=== PATIENT | female | born 1945 | race Caucasian/White ===

== ENCOUNTER 2018-08-20 09:38 | Emergency (ER) | payer OTHER, MEDICAID ==
[~2018-08-20] VITALS: Ht 165.1 cm; Wt 75.3 kg
[2018-08-20] MEDS ORDERED: LASIX 40 MG TAB40 M2 PO (09:47)
[2018-08-20] MEDS ORDERED: POTASSIUM20 PO (09:47)
[2018-08-20] MEDS ORDERED: ASPIR 8181 MG PO (09:47)
[2018-08-20 10:25] LABS: HEMATOCRIT 39.4 % (37.0-47.0); HEMOGLOBIN 13.4 gm/dL (12.0-15.0); MCH 32.3 pg (26.0-34.0); MCHC 34.1 g/dL (28.0-37.0); MCV 94.6 fL (80.0-100.0); MPV 9.3 fl. (7.2-11.1); NUCLEATED RBCS 0 /100WBC; PLATELET COUNT* 170 thou/uL (150-400); RBC 4.16 mil/uL (4.20-5.00); RDW-CV 12.7 % (10.5-14.5)
[2018-08-20 10:39] LABS: APTT 32.4 Seconds (25.0-31.3); INR 1.2; PROTIME 12.3 Seconds (9.20-11.50)
[2018-08-20 10:51] LABS: ABSOLUTE MONOCYTES 0.3 thou/uL (0.0-1.2); ABSOLUTE NEUTROPHILS 4.8 thou/uL (1.6-8.1); ATYPICAL LYMPHS 4 %; PLATELET ESTIMATE ADEQUATE
[2018-08-20 11:03] LABS: ALBUMIN 3.1 g/dL (3.4-5.0); ALKALINE PHOSPHATASE 58 U/L (46-116); ANION GAP 8 mmol/L (7-16); BUN 17 mg/dL (7-18); CALCIUM 8.9 mg/dL (8.5-10.1); CHLORIDE 107 mmol/L (98-107); CO2 28 mmol/L (21-32); CREATININE 0.7 mg/dL (0.6-1.3); GLUCOSE 88 mg/dL (70-99); LIPASE 94 U/L (73-393); POTASSIUM 3.6 mmol/L (3.5-5.1); SGOT 15 U/L (15-37); SGPT 18 U/L (30-65); SODIUM 143 mmol/L (136-145); TOTAL BILIRUBIN 0.4 mg/dL (<0.1-1.0); TOTAL PROTEIN 6.7 g/dL (6.4-8.2); TROPONIN-I LEVEL <0.06 ng/mL (<0.06)
[2018-08-20 11:12] LABS: URINE BILIRUBIN NEGATIVE (Negative); URINE BLOOD TRACE (Negative); URINE CLARITY CLEAR; URINE COLOR YELLOW; URINE GLUCOSE-RANDOM NEGATIVE (Negative); URINE KETONES NEGATIVE (Negative); URINE LEUKOCYTES-REFLEX NEGATIVE (Negative); URINE NITRITE-REFLEX NEGATIVE (Negative); URINE PROTEIN NEGATIVE (Negative); URINE SPECIFIC GRAVITY 1.025 (1.005-1.030)
[2018-08-20] MEDS ORDERED: HYDROCODONE-AP1 EAC6 PO (11:47)
[2018-08-20 12:14] VITALS: BP 124/44
--- NOTE | 2018-08-20 16:23 | EKG ---
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
== END 2018-08-20 12:15 | disposition home or self-care (01) ==
LOC: M.ERS 09:38
PROVIDERS: Emergency Medicine Emergency Medical Services
DX: R10.32 Left lower quadrant pain (principal); M54.5 Low back pain; I50.9 Heart failure, unspecified; Z91.041 Radiographic dye allergy status; Z90.49 Acquired absence of other specified parts of digestive tract; Z98.890 Other specified postprocedural states

== ENCOUNTER 2019-02-12 07:16 | Emergency (ER) | payer OTHER, MEDICAID ==
[~2019-02-12] VITALS: Ht 160 cm; Wt 71.7 kg
[~2019-02-12 07:16] MED LIST: ASPIR 8181 MG PO; HYDROCODONE-AP1 EAC6 PO; LASIX 40 MG TAB40 M2 PO; POTASSIUM20 PO
[2019-02-12] MEDS ORDERED: MEDROLDOSEPACK PO (07:46)
[2019-02-12] MEDS ORDERED: KEFLEX500 M1 PO (07:46)
[2019-02-12 07:53] VITALS: BP 153/74
== END 2019-02-12 07:54 | disposition home or self-care (01) ==
LOC: M.ERS 07:16
DX: M26.602 Left temporomandibular joint disorder, unspecified (principal); J02.9 Acute pharyngitis, unspecified; I50.9 Heart failure, unspecified; J44.9 Chronic obstructive pulmonary disease, unspecified; Z90.49 Acquired absence of other specified parts of digestive tract; Z98.890 Other specified postprocedural states; Z91.041 Radiographic dye allergy status

== ENCOUNTER 2019-08-30 08:37 | Emergency (ER) | payer OTHER, MEDICAID ==
[~2019-08-30] VITALS: Ht 160 cm; Wt 72.6 kg
[~2019-08-30 08:37] MED LIST changes: +KEFLEX500 M1 PO; +MEDROLDOSEPACK PO
[2019-08-30] MEDS ORDERED: VITAMIN D400 UNIT PO (08:48)
[2019-08-30 09:07] LABS: INFLUENZA A ANTIGEN Negative (Negative); INFLUENZA B ANTIGEN Negative (Negative)
[2019-08-30] MEDS ORDERED: PREDNISONE 20 M20 M1 PO (09:23)
[2019-08-30] MEDS ORDERED: ZPAK PO (09:23)
[2019-08-30 09:40] VITALS: BP 129/70
== END 2019-08-30 09:41 | disposition home or self-care (01) ==
LOC: M.ERS 08:37
PROVIDERS: Family Medicine
DX: J40 Bronchitis, not specified as acute or chronic (principal); I50.9 Heart failure, unspecified; J44.9 Chronic obstructive pulmonary disease, unspecified; Z90.49 Acquired absence of other specified parts of digestive tract; Z90.89 Acquired absence of other organs; Z91.041 Radiographic dye allergy status

== ENCOUNTER 2020-11-12 11:26 | Emergency (ER) | payer OTHER, MEDICAID ==
[~2020-11-12] VITALS: Ht 165.1 cm; Wt 80.3 kg
[~2020-11-12 11:26] MED LIST changes: +PREDNISONE 20 M20 M1 PO; +VITAMIN D400 UNIT PO; +ZPAK PO
[2020-11-12 11:55] LABS: ABSOLUTE BASOPHILS 0.1 thou/uL (0.0-0.2); ABSOLUTE EOSINOPHILS 0.1 thou/uL (0.0-0.7); ABSOLUTE LYMPHOCYTES 1.8 thou/uL (0.8-5.3); ABSOLUTE MONOCYTES 0.5 thou/uL (0.0-1.2); ABSOLUTE NEUTROPHILS 4.8 thou/uL (1.6-8.1); BASOPHILS 0.8 %; EOSINOPHILS 0.9 %; HEMATOCRIT 39.2 % (37.0-47.0); HEMOGLOBIN 13.3 gm/dL (12.0-15.0); LYMPHOCYTES 25.4 %; MCH 31.6 pg (26.0-34.0); MCV 93.1 fL (80.0-100.0); MONOCYTES 6.3 %; MPV 8.1 fl. (7.2-11.1); NUCLEATED RBCS 0 /100WBC; PLATELET COUNT* 190 thou/uL (150-400); POLYS 66.6 %; RBC 4.21 mil/uL (4.20-5.00); RDW-CV 12.6 % (10.5-14.5); WBC 7.1 thou/uL (4.0-11.0)
[2020-11-12 12:02] LABS: CALCIUM 9.2 mg/dL (8.5-10.1); CREATININE 0.9 mg/dL (0.6-1.3); POTASSIUM 3.4 mmol/L (3.5-5.1)
[2020-11-12 12:06] LABS: ALBUMIN 3.4 g/dL (3.4-5.0); APTT 24.8 Seconds (25.0-31.3); PROTIME 10.3 Seconds (9.20-11.50); TOTAL BILIRUBIN 0.3 mg/dL (<0.1-1.0); TOTAL PROTEIN 7.2 g/dL (6.4-8.2)
[2020-11-12] MEDS ORDERED: FLEXERIL PO (13:26)
[2020-11-12] MEDS ORDERED: MEDROLDOSEPACK PO (13:26)
[2020-11-12] MEDS ORDERED: NORCO5 PO (14:03)
[2020-11-12 14:11] LABS: URINE BILIRUBIN NEGATIVE (Negative); URINE BLOOD NEGATIVE (Negative); URINE CLARITY CLEAR; URINE COLOR YELLOW; URINE GLUCOSE-RANDOM NEGATIVE (Negative); URINE KETONES NEGATIVE (Negative); URINE LEUKOCYTES-REFLEX NEGATIVE (Negative); URINE NITRITE-REFLEX NEGATIVE (Negative); URINE PROTEIN NEGATIVE (Negative); URINE UROBILINOGEN 0.2 E.U./dl (0.2-1.0)
[2020-11-12 14:31] VITALS: BP 146/44
--- NOTE | 2020-11-12 16:58 | EKG ---
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 : 1945 Requested By: Evangelina Sandoval Order Number: [id number] MD: Christian Najera Measurements Intervals [place] Rate: 83 P: 52 [place]: 149 QRS: 22 QRSD: 107 T: 33 QT: 389 QTc: 457 Interpretive Statements Sinus rhythm Compared to ECG 08/20/2018 10:19:19 No significant changes Electronically Signed On 11-12-2020 16:58:27 DIALYSIS BIOMED TECHNICIAN by Christian Najera [email or web address] <ELECTRONICALLY SIGNED> By: Christian Najera MD, [facility] 11/12/20 1658 1138 113 Christian Najera MD, [facility] /EPI
== END 2020-11-12 14:32 | disposition home or self-care (01) ==
LOC: M.ERS 11:26
PROVIDERS: Physician Assistant
DX: R20.0 Anesthesia of skin (principal); M54.2 Cervicalgia; R07.89 Other chest pain; I50.9 Heart failure, unspecified; J44.9 Chronic obstructive pulmonary disease, unspecified; Z90.89 Acquired absence of other organs; Z90.49 Acquired absence of other specified parts of digestive tract; Z79.82 Long term (current) use of aspirin; Z79.899 Other long term (current) drug therapy; Z91.041 Radiographic dye allergy status; X50.1XXA Overexertion from prolonged static or awkward postures, initial encounter; Y93.84 Activity, sleeping; Y92.89 Other specified places as the place of occurrence of the external cause; Y99.8 Other external cause status

== ENCOUNTER 2021-03-29 08:15 | Inpatient (IN) | payer OTHER, MEDICAID ==
[~2021-03-29] VITALS: Ht 165.1 cm; Wt 86.9 kg
--- NOTE | ~2021-03-29 | CON ---
[address] [address] CONSULTATION Name: PATELHORACE Perri Room: [place] [address] ADM IN M.R.#: [id number] Admission: 03/29/21 Attend Phys: Hari Bey Discharge: Date of : 47 Report #: [id number] THIS REPORT FOR: cc: Jakob Rodriguez MD, Jonathan MD Khosla,Romel Marroquin MD ~ DATE OF CONSULTATION: 03/29/2021 HISTORY OF PRESENT ILLNESS: A 76-year-old female patient who was evaluated by me for left-sided weakness. She is complaining of neck pain, which is in the middle of the neck. It does radiate down towards the left upper extremity. It is going on for 3-4 days. She says she is able to do everything by herself. There is some history she has given earlier. She was wobbly. Nothing makes it better or worse. REVIEW OF SYSTEMS: A 14-point review of system was carried out. She has a history of congestive heart failure. She has a history of tonsillectomy, appendectomy. She says that she does not have any history of anxiety, depression, diabetes, hypertension. She denies any eye, ENT, cardiac, respiratory, , musculoskeletal, constitutional, dermatological, hematological, psychiatric, throat, allergic symptom associated with present symptomatology. PAST MEDICAL HISTORY: Positive for congestive heart failure. FAMILY HISTORY: Negative for early age stroke. SOCIAL HISTORY: She does not drink alcohol or smoke. PHYSICAL EXAMINATION: NEUROLOGIC: The patient's examination indicates she is alert. She is responsive. She is able to follow simple commands. Her speech looks intact. She believes her memory and fund of knowledge is at her baseline. Cranial nerve examination 2-12 looks unremarkable. She is weak in the left upper extremity and left lower extremity. She does position sense on both sides, but somewhat slowly on the left side. She says her sensation is about the same on both sides. I do not see any of the plantars except mute. Tone looks symmetrical. She does not appear to be ataxic. I could not look at the patient's fundus. There is no meningeal sign. Her hearing and vision looks adequate. There is no edema, cyanosis or jaundice. There is no thyroid mass. There is no carotid bruit. She does not appear to have any respiratory difficulty. VITAL SIGNS: Blood pressure is 148/67, respirations 20, pulse is 79, temperature is 98.3. LABORATORY DATA: Indicate a white count of 10.4. Potassium is slightly low at 3.4. [place] [address] CONSULTATION Name: JORGEHORACE S Room: [address] IN ..#: [id number] Admission: 03/29/21 Attend Phys: Hari Bey Discharge: Date of : 47 Report #: [id number] IMPRESSION AND PLAN: This patient is complaining of left and symptoms on the left side. I think we need to consider the possibility of a stroke as well as spine lesion. If it is a stroke, then we need to consider the possibility of dissection because of the neck pain. I think the initial test will be CT of the head and cervical spine, which I ordered stat. Rest of the workup will depend upon the outcome of those tests. She may need some further workup in that regard. Thank you very much for this referral. By: 1112 [id number] Silva MD /nt
[~2021-03-29 08:15] MED LIST changes: -ASPIR 8181 MG PO; +BAYER CHEWABLE81 MG PO; +FLEXERIL PO; +NORCO5 PO
[2021-03-29 08:25] VITALS: BP 151/77
[2021-03-29 09:23] LABS: CALCIUM 8.7 mg/dL (8.5-10.1); CREATININE 0.9 mg/dL (0.6-1.3); POTASSIUM 3.4 mmol/L (3.5-5.1)
[2021-03-29 09:25] LABS: ABSOLUTE BASOPHILS 0.1 thou/uL (0.0-0.2); ABSOLUTE MONOCYTES 0.8 thou/uL (0.0-1.2); ABSOLUTE NEUTROPHILS 8.5 thou/uL (1.6-8.1); BASOPHILS 0.5 %; EOSINOPHILS 0.2 %; LYMPHOCYTES 9.9 %; MCH 32.7 pg (26.0-34.0); MCHC 34.9 g/dL (28.0-37.0); MCV 93.6 fL (80.0-100.0); MONOCYTES 7.5 %; MPV 8.8 fl. (7.2-11.1); NUCLEATED RBCS 0 /100WBC; PLATELET COUNT* 205 thou/uL (150-400); POLYS 81.9 %; RBC 4.27 mil/uL (4.20-5.00); RDW-CV 12.2 % (10.5-14.5); WBC 10.4 thou/uL (4.0-11.0)
[2021-03-29 09:26] LABS: APTT 28.8 Seconds (25.0-31.3); PROTIME 10.9 Seconds (9.20-11.50)
[2021-03-29 09:34] LABS: ALBUMIN 3.4 g/dL (3.4-5.0); TOTAL BILIRUBIN 0.6 mg/dL (<0.1-1.0); TOTAL PROTEIN 7.4 g/dL (6.4-8.2)
[2021-03-29 14:30] VITALS: BP 123/52
[2021-03-29 18:30] VITALS: BP 138/63
[2021-03-29 19:45] VITALS: BP 138/63
[2021-03-29 20:00] VITALS: BP 153/71
[2021-03-30] VITALS (8 sets, daily range): BP systolic 111–141; BP diastolic 53–67
--- NOTE | 2021-03-30 15:22 | EKG ---
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
[2021-03-30] MEDS ORDERED: METHOCARBAMOL750 MG PO (16:47)
[2021-03-30] MEDS ORDERED: NORCO5 PO (16:47)
--- NOTE | 2021-03-30 16:56 | 2DMMODE ---
[place] [address] 2 D/M-MODE ECHOCARDIOGRAM Name: HORACE PATEL Room: [address] IN R.#: [id number] Admission: 03/29/21 Attend Phys: Raimundo Horowitz Discharge: Date of : 47 Date of Service: 03/30/21 1656 Report #: [id number] THIS REPORT FOR: cc: Jakob Rodriguez MD, Jonathan MD [place], Michael J. MD [facility] ~ APPROVED REPORT Study performed: 03/30/2021 14:32:22 EXAM: Comprehensive 2D, Doppler, and color-flow Echocardiogram Patient Location: In-Patient Room #: 208 BSA: 1.85 HR: 52 bpm BP: 111/58 mmHg Other Information Study Quality: Good Indications Dyspnea 2D Dimensions IVSd: 8.99 (7-11mm) LVOT Diam: 20.66 (18-24mm) LVDd: 49.06 mm PWd: 5.98 (7-11mm) Ascending Ao: 27.92 (22-36mm) LVDs: 28.71 (25-40mm) Aortic Root: 29.36 mm Volumes Left Atrial Volume (Systole) LA ESV Index: 14.80 mL/m2 Aortic Valve AoV Peak Henok.: 1.12 m/s AO Peak Gr.: 5.06 mmHg LVOT Max P.21 mmHg AO Mean Gr.: 2.49 mmHg LVOT Mean P.46 mmHg LVOT Max V: 1.25 m/s AO V2 VTI: 21.33 cm LVOT Mean V: 0.69 m/s MARZENA (VTI): 4.42 cm2 LVOT V1 VTI: 28.14 [place] [address] 2 D/M-MODE ECHOCARDIOGRAM Name: HORACE PATEL Room: [address] IN .R.#: [id number] Admission: 03/29/21 Attend Phys: Raimundo Horowitz Discharge: Date of : 47 Date of Service: 03/30/21 1656 Report #: [id number] E/A Ratio: 0.84 MV Decel. Time: 227.91 ms MV E Max Henok.: 0.64 m/s MV PHT: 66.09 ms MVA (PHT): 3.33 cm2 TDI E/Lateral E': 8.00 E/Medial E': 6.40 Medial E' Henok.: 0.10 m/s Lateral E' Henok.: 0.08 m/s Pulmonary Valve PV Peak Henok.: 0.80 m/s PV Peak Gr.: 2.56 mmHg Left Ventricle The left ventricle is normal size. There is normal LV segmental wall motion. There is normal left ventricular wall thickness. Left ventricular systolic function is normal. LVEF is 55-60%. Grade I - abnormal relaxation pattern. Right Ventricle The right ventricle is normal size. The right ventricular systolic function is normal. Atria The left atrium size is normal. The right atrium size is normal. Aortic Valve The aortic valve is normal in structure. No aortic regurgitation is present. There is no aortic valvular stenosis. Mitral Valve The mitral valve is normal in structure. There is no mitral valve regurgitation noted. No evidence of mitral valve stenosis. Tricuspid Valve The tricuspid valve is normal in structure. There is no tricuspid valve regurgitation noted. Pulmonic Valve The pulmonary valve is normal in structure. There is no pulmonic valvular regurgitation. Great Vessels The aortic root is normal in size. [place] [address] 2 D/M-MODE ECHOCARDIOGRAM Name: HORACE PATEL Room: [address] IN [facility]#: [id number] Admission: 03/29/21 Attend Phys: Raimundo Horowitz Discharge: Date of : 47 Date of Service: 03/30/21 1656 Report #: [id number] collapses >50% with inspiration. Pericardium There is no pericardial effusion. <Conclusion> The left ventricle is normal size. There is normal left ventricular wall thickness. Left ventricular systolic function is normal. LVEF is 55-60%. Grade I - abnormal relaxation pattern. IVC is normal in size and collapses >50% with inspiration. <ELECTRONICALLY SIGNED> By: Christian Najera MD, FACC 03/30/21 165 55 55 Christian Najera MD, FACC /INF
== END 2021-03-30 18:55 | disposition home or self-care (01) | DRG 552 ==
LOC: M.ERS 08:15 → M.2W 10:35 → M.TBA-ER 10:35 → M.2W 19:43
PROVIDERS: Emergency Medicine Emergency Medical Services; ADMIT Internal Medicine; ATTEND Internal Medicine
DX: M48.02 Spinal stenosis, cervical region (principal); M43.6 Torticollis; I50.9 Heart failure, unspecified; J44.9 Chronic obstructive pulmonary disease, unspecified; Z20.822 Contact with and (suspected) exposure to COVID-19; Z79.82 Long term (current) use of aspirin; Z79.899 Other long term (current) drug therapy; Z91.041 Radiographic dye allergy status; Z90.49 Acquired absence of other specified parts of digestive tract

== ENCOUNTER 2021-08-03 10:47 | Emergency (ER) | payer OTHER ==
[~2021-08-03] VITALS: Ht 167.6 cm; Wt 73.0 kg
[~2021-08-03 10:47] MED LIST changes: +METHOCARBAMOL750 MG PO
[2021-08-03 11:36] LABS: ABSOLUTE LYMPHOCYTES 0.7 thou/uL (0.8-5.3); ABSOLUTE MONOCYTES 0.5 thou/uL (0.0-1.2); ABSOLUTE NEUTROPHILS 2.5 thou/uL (1.6-8.1); BASOPHILS 0.5 %; HEMATOCRIT 41.9 % (37.0-47.0); LYMPHOCYTES 18.4 %; MCH 32.2 pg (26.0-34.0); MCHC 33.4 g/dL (28.0-37.0); MCV 96.5 fL (80.0-100.0); NUCLEATED RBCS 0 /100WBC; PLATELET COUNT* 106 thou/uL (150-400); POLYS 68.1 %; RBC 4.34 mil/uL (4.20-5.00); WBC 3.6 thou/uL (4.0-11.0)
[2021-08-03 11:56] LABS: CALCIUM 8.3 mg/dL (8.5-10.1); CREATININE 0.8 mg/dL (0.6-1.3); POTASSIUM 4.2 mmol/L (3.5-5.1)
[2021-08-03 12:00] LABS: ALBUMIN 2.8 g/dL (3.4-5.0); TOTAL BILIRUBIN 0.3 mg/dL (<0.1-1.0); TOTAL PROTEIN 6.5 g/dL (6.4-8.2)
[2021-08-03] MEDS ORDERED: TESSALON PERLE100 MG PO (12:13)
[2021-08-03] MEDS ORDERED: ZOFRAN ODT4 MG DISSOLVE (12:13)
[2021-08-03 13:03] VITALS: BP 130/62
--- NOTE | 2021-08-04 14:13 | EKG ---
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 08/04/21 1413 1105 1105 Rajesh Flowers MD, [facility] /EPI
== END 2021-08-03 13:05 | disposition home or self-care (01) ==
LOC: M.ERS 10:47
PROVIDERS: Emergency Medicine Emergency Medical Services
DX: U07.1 COVID-19 (principal); I50.9 Heart failure, unspecified; J44.9 Chronic obstructive pulmonary disease, unspecified; Z90.89 Acquired absence of other organs; Z90.49 Acquired absence of other specified parts of digestive tract; Z91.041 Radiographic dye allergy status

== ENCOUNTER 2021-08-12 10:16 | Emergency (ER) | payer OTHER, MEDICAID ==
[~2021-08-12] VITALS: Ht 165.1 cm; Wt 72.6 kg
[~2021-08-12 10:16] MED LIST changes: +TESSALON PERLE100 MG PO; +ZOFRAN ODT4 MG DISSOLVE
[2021-08-12 12:50] LABS: URINE BLOOD TRACE (Negative); URINE CLARITY CLEAR; URINE COLOR DARK YELLOW; URINE GLUCOSE-RANDOM TRACE (Negative); URINE LEUKOCYTES-REFLEX TRACE (Negative); URINE PROTEIN 2+ (Negative); URINE SPECIFIC GRAVITY 1.025 (1.005-1.030)
[2021-08-12 13:12] LABS: URINE KETONES 3+ (Negative)
[2021-08-12 13:13] LABS: ACETEST (KETONE CONFIRMATORY) Large (Negative); ICTOTEST (BILI CONFIRMATORY) Negative (Negative); URINE BILIRUBIN 3+ (Negative); URINE NITRITE-REFLEX POSITIVE (Negative)
[2021-08-12 13:22] LABS: SQUAMOUS >10 Many /LPF (0-3)
[2021-08-12 13:23] LABS: CRYSTALS None Seen /LPF (None Seen); HYALINE CASTS 0-3 Few /LPF (None Seen); URINE RBC 3-10 Few /HPF (0-2); URINE WBC-REFLEX 6-15 Few /HPF (0-5)
[2021-08-12 14:45] VITALS: BP 127/97
== END 2021-08-12 14:45 | disposition left against medical advice (07) ==
LOC: M.ERS 10:16
PROVIDERS: Physician Assistant
DX: R11.2 Nausea with vomiting, unspecified (principal); Z53.21 Procedure and treatment not carried out due to patient leaving prior to being seen by health care provider